=== PATIENT | male | born 1990 | race Caucasian/White ===

== ENCOUNTER 2021-01-14 18:31 | Observation (INO) ==
[2021-01-14] MEDS ORDERED: SODIUM CHLORIDE 0.9% 1000ML 2,000 ML IV ONE (18:36)
[2021-01-14] MEDS ORDERED: ONDANSETRON INJ 2 MG/ML 2 ML VIAL IV STA (18:45)
[2021-01-14] MEDS ORDERED: KETOROLAC TROMETHAMINE 15 MG/ML VIAL IV ONE (18:45)
--- NOTE | 2021-01-14 18:47 | Emergency Department Note ---
Impression & Plan Incarcerated epigastric hernia, Abdominal pain ED Provider Note NAME: LIZETTE GLYNN AGE: 30 SEX: M : 1990 ARRIVES VIA: Walk-In INFORMANT: Patient ED PROVIDER(S): Jalen Hayden DO CHIEF COMPLAINT: Abdominal pain HPI: Patient is a 22-year-old male who presents the ER for supraumbilical abdominal pain which started around 12 PM. He has been having intermittent pain for the past year. He admits to nausea but no vomiting. No dysuria, urgency or frequency. Last bowel movement was around 3 PM. Pain is an 8/10. Denies any chest pain or shortness of breath. Pain is worse with movement and palpation. No other exacerbating remitting factors. ROS: See above HPI for pertinent positives & negatives. A total of 10 systems reviewed and were otherwise negative. PAST MEDICAL HISTORY:See Below PAST SURGICAL HISTORY:See Below FAMILY HISTORY:See Below SOCIAL HISTORY:See Below HOME MEDICATIONS:See Below ALLERGIES:See Below VITALS:See Below PHYSICAL EXAMINATION: GENERAL: Sitting up in bed, alert, well appearing, well nourished, no distress, non-toxic EYE EXAM: normal conjunctiva. OROPHARYNX: no exudate, no erythema, lips, buccal mucosa, and tongue normal and mucous membranes are moist NECK: supple, no nuchal rigidity, no adenopathy, non-tender LUNGS: Clear to auscultation. Normal chest wall mechanics HEART: no murmurs, S1 normal and S2 normal ABDOMEN: abdomen soft, firm tender mass in the superior umbilical region nonreducible, normo-active bowel sounds, no rebound or guarding. BACK: Back is symmetrical on inspection and there is no deformity, no midline tenderness, no CVA tenderness. SKIN: no rashes and no bruising UPPER EXTREMITIES: upper extremities are grossly normal. LOWER EXTREMITIES: No pitting edema. NEURO EXAM: Normal sensorium, cranial nerves II-XII grossly intact, normal speech, no gross weakness of arms, no gross weakness of legs. MEDICAL DECISION MAKING: Patient is a 30-year-old male who presents ER for severe abdominal pain. On exam he has an epigastric abdominal hernia which is nonreducible and severely tender. IVs were established blood work was obtained. Labs show a leukocytosis of 12,000. No significant anemia. BMP on LFTs bilirubin and lipase was unremarkable. I-STAT was obtained and patient was taken emergently to CT. I did consult general surgery and they evaluated him on his way over to CT. CT showed a small bowel obstruction likely secondary to incarcerated epigastric hernia. Covid was positive. He was given IV fluids pain medications. He was updated bedside. He was taken emergently to the OR for reduction of the hernia. Triage Nursing notes reviewed. Limited review of prior medical records performed Vital Signs: reviewed and remarkable for HTN Differential diagnosis: Differential diagnoses includes but is not limited to gastritis, peptic ulcer disease, GERD, gallbladder disease, pancreatitis, small bowel obstruction, acute coronary syndrome, pericarditis, ischemic bowel, irritable bowel disease, irritable bowel syndrome, appendicitis, diverticulitis, malignancy, hernia, urinary tract infection, torsion, perforation, trauma, infectious. ER treatment provided: See below Diagnostics interpreted by me: ECG: none Cardiac Monitoring: An order was placed for continuous cardiac monitoring. The monitor shows a rate of 72 with sinus rhythm. Laboratory studies: As stated above and show below. Imaging studies: CT abdomen pelvis shows an incarcerated epigastric hernia causing a small bowel obstruction Consultation(s): Consulted Morgan Gonzalez who evaluate the patient at bedside and took the patient emergently to the OR Procedures: none Critical Care: I have personally spent 31 minutes of critical care time in the direct management of this patient. This includes bedside care, interpretation of diagnostic studies, and testing, discussion with consultants, patient, and family members, and other required patient management activities. This 31 minutes is in excess of all separately billable procedures. Past Med/Surg History Medical History Hx of migraines Surgical History No significant past surgical history Social History Smoking Status: Never smoker marital status: Single current occupational status: employed Feels Safe at Home: Yes Allergies Allergies Allergy/AdvReac Type Severity Reaction Status Date / Time No Known Allergies Allergy Verified 09/08/20 14:03 Home Meds Previous Rx's Medication Instructions Recorded benzonatate [Tessalon Perles] 100 mg PO TID PRN #20 cap 12/07/20 Results & Data (ED) Vital Signs Vital Signs - 24 hr 01/14/21 18:33 Temperature 36.6 C Temperature Source Skin Pulse Rate 79 Respiratory Rate 16 Respiratory Effort / Characteristics Non-Labored Spontaneous Respiratory Depth Normal Blood Pressure 152/96 H Blood Pressure Mean 114 Blood Pressure Position Sitting Pulse Oximetry 98 Oxygen Delivery Method Room Air Sepsis Recent Fever Within 48 Hours No Sepsis New/Unexplained Change in Mental Status N/A Sepsis Action Taken by Nursing No Action Required Laboratory Data Result diagrams: 01/14/21 18:47 01/14/21 18:47 Lab Results 01/14/21 01/14/21 01/14/21 Range/Units 18:47 18:47 18:52 WBC 12.01 H (4.8-10.8) K/uL RBC 5.47 (4.7-6.1) M/uL Hgb 17.2 (14.0-18.0) g/dL POC Hgb 17.3 (14.0-18.0) g/dl Hct 50.1 (42-52) % POC Hct 51 (42-52) % MCV 91.6 (80-100) fL MCH 31.4 (25-34) pg MCHC 34.3 (32-36) g/dL RDW Std Deviation 43.9 (36.4-46.3) fL RDW Coeff of Glenn 12.9 (11.5-14.5) % Plt Count 378 (130-400) K/uL MPV 9.7 (7.4-10.4) fL Immature Gran % (Auto) 0.2 % Neut % (Auto) 72.7 % Lymph % (Auto) 18.0 % [place] % (Auto) 8.4 % Eos % (Auto) 0.4 % Baso % (Auto) 0.3 % Neut # (Auto) 8.72 H (1.4-6.5) K/uL Lymph # (Auto) 2.16 (1.2-3.4) K/uL [place] # (Auto) 1.01 H (0.11-0.59) K/uL Eos # (Auto) 0.05 (0-0.5) K/uL Baso # (Auto) 0.04 (0-0.2) K/uL Immature Gran # (Auto) 0.03 H (0.00-0.02) K/uL POC Sodium 141 (135-144) mmol/L Sodium 140 (136-145) mmol/L POC Potassium 3.9 (3.3-5.0) mmol/L Potassium 3.9 (3.5-5.1) mmol/L POC Chloride 101 (101-112) mmol/L Chloride 104 (98-107) mmol/L Carbon Dioxide 28 (21-32) mmol/L POC Total CO2 28 (24-31) mmol/L Anion Gap 8.0 (3-11) POC Anion Gap 17.0 (16-25) mmol/L POC BUN 13 (7-18) mg/dl BUN 13 (7-18) mg/dl Creatinine 1.10 (0.6-1.4) mg/dl POC Creatinine 1.0 (0.6-1.3) mg/dl Est Cr Clr Drug Dosing 117.9 ml/min Est GFR ( Amer) 104.6 ml/min Est GFR (Non-Af Amer) 90.2 ml/min BUN/Creatinine Ratio 11.7 (10-20) Glucose 91 (70-99) mg/dl POC Glucose (other) 96 (70-99) mg/dl Calcium 9.8 (8.5-10.1) mg/dl POC Ioniz Calcium Julito 1.22 (1.12-1.32) mmol/l Total Bilirubin 0.9 (0.2-1) mg/dl AST 15 (15-37) U/L ALT 39 (12-78) U/L Alkaline Phosphatase 83 (45-117) U/L Total Protein 8.6 H (6.4-8.2) gm/dl Albumin 4.4 (3.4-5.0) gm/dl Globulin 4.2 H (2.5-4.0) gm/dl Albumin/Globulin Ratio 1.1 (0.9-2) Lipase 103 (73-393) U/L COVID-19 Eval Order SARS-CoV-2 (PCR) (Negative) 01/14/21 01/14/21 Range/Units Unknown Unknown WBC (4.8-10.8) K/uL RBC (4.7-6.1) M/uL Hgb (14.0-18.0) g/dL POC Hgb (14.0-18.0) g/dl Hct (42-52) % POC Hct (42-52) % MCV (80-100) fL MCH (25-34) pg MCHC (32-36) g/dL RDW Std Deviation (36.4-46.3) fL RDW Coeff of Glenn (11.5-14.5) % Plt Count (130-400) K/uL MPV (7.4-10.4) fL Immature Gran % (Auto) % Neut % (Auto) % Lymph % (Auto) % [place] % (Auto) % Eos % (Auto) % Baso % (Auto) % Neut # (Auto) (1.4-6.5) K/uL Lymph # (Auto) (1.2-3.4) K/uL [place] # (Auto) (0.11-0.59) K/uL Eos # (Auto) (0-0.5) K/uL Baso # (Auto) (0-0.2) K/uL Immature Gran # (Auto) (0.00-0.02) K/uL POC Sodium (135-144) mmol/L Sodium (136-145) mmol/L POC Potassium (3.3-5.0) mmol/L Potassium (3.5-5.1) mmol/L POC Chloride (101-112) mmol/L Chloride (98-107) mmol/L Carbon Dioxide (21-32) mmol/L POC Total CO2 (24-31) mmol/L Anion Gap (3-11) POC Anion Gap (16-25) mmol/L POC BUN (7-18) mg/dl BUN (7-18) mg/dl Creatinine (0.6-1.4) mg/dl POC Creatinine (0.6-1.3) mg/dl Est Cr Clr Drug Dosing ml/min Est GFR ( Amer) ml/min Est GFR (Non-Af Amer) ml/min BUN/Creatinine Ratio (10-20) Glucose (70-99) mg/dl POC Glucose (other) (70-99) mg/dl Calcium (8.5-10.1) mg/dl POC Ioniz Calcium Julito (1.12-1.32) mmol/l Total Bilirubin (0.2-1) mg/dl AST (15-37) U/L ALT (12-78) U/L Alkaline Phosphatase (45-117) U/L Total Protein (6.4-8.2) gm/dl Albumin (3.4-5.0) gm/dl Globulin (2.5-4.0) gm/dl Albumin/Globulin Ratio (0.9-2) Lipase (73-393) U/L COVID-19 Eval Order Covid19 at [facility] SARS-CoV-2 (PCR) POSITIVE A* (Negative) Administered Medications Discontinued Medications Bupivacaine HCl/Epinephrine Bitart (Bupivacaine/Epinephrine 0.5% Mpf 1:200,000 30 Ml Vial) Confirm Administered Dose 30 ml .ROUTE .STK-MED ONE Stop: 01/14/21 21:55 Last Admin: 01/14/21 23:23 Dose: 30 ml Documented by: [id number] Sodium Chloride (Nss 1000ml) 2,000 mls @ 999 mls/hr IV .Q2H1M ONE Stop: 01/14/21 20:36 Last Admin: 01/14/21 18:57 Dose: 999 mls/hr Documented by: [id number] Cefazolin Sodium (Ancef 2000mg) 2,000 mg in 15 mls @ 3.75 mls/min IV ONCE ONE Stop: 01/14/21 23:01 Last Admin: 01/14/21 22:59 Dose: 3.75 mls/min Documented by: [id number] Ioversol (Optiray 300 100ml) 88 ml IV ONCE ONE Stop: 01/14/21 19:17 Last Admin: 01/14/21 19:17 Dose: 88 ml Documented by: [id number] Ketorolac Tromethamine (Ketorolac Tromethamine 15 Mg/Ml Vial) 15 mg IV NOW ONE Stop: 01/14/21 18:46 Last Admin: 01/14/21 18:56 Dose: 15 mg Documented by: [id number] Ondansetron HCl (Ondansetron Inj 2 Mg/Ml 2 Ml Vial) 4 mg IV NOW STA Stop: 01/14/21 18:46 Last Admin: 01/14/21 18:56 Dose: 4 mg Documented by: [id number] Imaging Data Radiologist's Impression: Abdomen/Pelvis CT 01/14/21 18:42 CT OF THE ABDOMEN AND PELVIS WITH CONTRAST CLINICAL HISTORY: Periumbilical pain. COMPARISON STUDY: None. TECHNIQUE: Following IV administration of 88 mL of Optiray, axial images of the abdomen and pelvis were obtained from the lung bases to the proximal femurs. Images were reviewed in the axial, sagittal, and coronal planes. IV contrast was administered without complication. Automated exposure control was utilized for the study. A dose lowering technique was utilized adhering to the principles of ALARA. CT DOSE: 882.00 mGy.cm FINDINGS: Lung bases are unremarkable. No pneumatosis, free air or portal venous gas is present. The stomach is mildly distended. The liver, adrenal glands, kidneys and pancreas are unremarkable. There is borderline splenomegaly. There is no hydronephrosis. No biliary or pancreatic ductal dilatation is noted. There is no peripancreatic or pericholecystic infiltration. The appendix is normal. A small fat-containing umbilical hernia is present. In addition, there is a supraumbilical hernia which contains a loop of small bowel and a small amount of fluid. The small bowel proximal to the hernia is moderately dilated and fluid-fi lled. Small bowel distal to the hernia is decompressed. This represents a small bowel obstruction. There is associated mesenteric infiltration and small amount of ascites. Major vasculature is patent. There is no lymphadenopathy. No acute fracture or suspicious lesion is identified within the visualized skeletal structures. IMPRESSION: 1. Small bowel obstruction due to a supraumbilical hernia which contains a loop of small bowel. Small amount of associated ascites and mesenteric infiltration. 2. Fat-containing umbilical hernia. ACT 112: Negative or not required by law. Electronically signed by: Anthony Kay M.D. 01/14/2021 7:31 PM Discharge Plan Visit Data Chief Complaint: Nausea Stated Complaint: NAUSEA, TENDERNESS IN ABDOMEN AREA ED Provider: Jalen Hayden Discharge Problem: Incarcerated epigastric hernia, Abdominal pain Patient Disposition: Admitted As Inpatient Discharge Instructions Interventions: ED Discharge Assessment Last Done: 01/14/21 22:11 Forms Stand Alone Forms: [employer] Prescriptions Prescriptions: No Action benzonatate [Tessalon Perles] 100 mg capsule 100 mg PO TID PRN (Reason: cough) Qty: 20 RF: 1 Referrals Referrals: PCP,NO [Primary Care Provider] - Discharge Problem: Abdominal pain Qualifiers: Abdominal location: unspecified location Qualified Code(s): R10.9 - Unspecified abdominal pain
[2021-01-14 18:55] LABS: Basophils # (auto) 0.04 K/uL (0-0.2); Basophils % (auto) 0.3 %; Eosinophils # (auto) 0.05 K/uL (0-0.5); Eosinophils % (auto) 0.4 %; Hematocrit (blood only) 50.1 % (42-52); Hemoglobin 17.2 g/dL (14.0-18.0); Immature Granulocytes # (auto) 0.03 K/uL (0.00-0.02); Immature Granulocytes % (auto) 0.2 %; Lymphocytes # (auto) 2.16 K/uL (1.2-3.4); Mean Corpuscular Hemoglobin 31.4 pg (25-34); Mean Corpuscular Hgb Conc 34.3 g/dL (32-36); Mean Corpuscular Volume 91.6 fL (80-100); Mean Platelet Volume 9.7 fL (7.4-10.4); Monocytes # (auto) 1.01 K/uL (0.11-0.59); Monocytes % (auto) 8.4 %; Neutrophils # (auto) 8.72 K/uL (1.4-6.5); Neutrophils % (auto) 72.7 %; Platelet Count 378 K/uL (130-400); RDW Coefficient of Variation 12.9 % (11.5-14.5); RDW Standard Deviation 43.9 fL (36.4-46.3); Red Blood Count 5.47 M/uL (4.7-6.1); White Blood Count 12.01 K/uL (4.8-10.8)
[2021-01-14 19:05] LABS: iSTAT Hemoglobin 17.3 g/dl (14.0-18.0); iSTAT Ionized Calcium 1.22 mmol/l (1.12-1.32); iSTAT Potassium 3.9 mmol/L (3.3-5.0)
[2021-01-14] MEDS ORDERED: OPTIRAY 300 100mL IV ONE (19:16)
[2021-01-14 19:29] LABS: Albumin Level 4.4 gm/dl (3.4-5.0); BUN Creatinine Ratio 11.7 (10-20); Calcium 9.8 mg/dl (8.5-10.1); Creatinine Clr Calc Pharmacy 117.9 ml/min; Est GFR (African American) 104.6 ml/min; Est GFR (Non-African American) 90.2 ml/min; Potassium 3.9 mmol/L (3.5-5.1)
[2021-01-14 19:32] LABS: Albumin Globulin Ratio 1.1 (0.9-2); Bilirubin,Total 0.9 mg/dl (0.2-1); Globulin 4.2 gm/dl (2.5-4.0); Total Protein 8.6 gm/dl (6.4-8.2)
--- NOTE | 2021-01-14 19:33 | CT Scan Report ---
CT OF THE ABDOMEN AND PELVIS WITH CONTRAST CLINICAL HISTORY: Periumbilical pain. COMPARISON STUDY: None. TECHNIQUE: Following IV administration of 88 mL of Optiray, axial images of the abdomen and pelvis we re obtained from the lung bases to the proximal femurs. Images were reviewed in the axial, sagittal, and coronal planes. IV contrast was administered without complication. Automated exposure control wa s utilized for the study. A dose lowering technique was utilized adhering to the principles of ALARA . CT DOSE: 882.00 mGy.cm FINDINGS: Lung bases are unremarkable. No pneumatosis, free air or portal venous gas is present. The stomach is mildly distended. The liver, adrenal glands, kidneys and pancreas are unremarkable. There is borderline splenomegaly. There is no hydronephrosis. No biliary or pancreatic ductal dilatation is noted. There is no peripancreatic or pericholecystic infiltration. The appendix is normal. A small f at-containing umbilical hernia is present. In addition, there is a supraumbilical hernia which contai ns a loop of small bowel and a small amount of fluid. The small bowel proximal to the hernia is moder ately dilated and fluid-filled. Small bowel distal to the hernia is decompressed. This represents a s mall bowel obstruction. There is associated mesenteric infiltration and small amount of ascites. Indy r vasculature is patent. There is no lymphadenopathy. No acute fracture or suspicious lesion is ident ified within the visualized skeletal structures. IMPRESSION: 1. Small bowel obstruction due to a supraumbilical hernia which contains a loop of small bowel. Small amount of associated ascites and mesenteric infiltration. 2. Fat-containing umbilical hernia. ACT 112: Negative or not required by law. Electronically signed by: Anthony Kay M.D. 01/14/2021 7:31 PM
--- NOTE | 2021-01-14 20:02 | History & Physical Report ---
Date of Service January 14, 2021 Assessment & Plan (1) Incarcerated epigastric hernia: -CT images and results reviewed, consistent with incarcerated epigastric hernia with SBO -Admit to surgery -Pain control PRN -NPO/IVF -To OR tonight for open repair of incarcerated epigastric hernia, possible mesh, possible bowel resection -Consent obtained, risks discussed including bleeding, infection, recurrence, mesh infection, leak History of Present Illness Chief Complaint: Abdominal pain, Nausea Primary Care Provider: NO PCP This is a 30 yo male who presents to the ER with abdominal pain and nausea. He states he was lifting some heavy boxes today when he felt a pop above his umbilicus. His abdominal pain was sharp, tearing without radiation, worsened by palpation. This happened around noon today. He had nausea without emesis. No constipation or diarrhea. No melena or hematochezia. No dysuria. He has never had surgery on his abdomen. Allergies Allergy/AdvReac Type Severity Reaction Status Date / Time No Known Allergies Allergy Verified 09/08/20 14:03 Home Medications Medication Instructions Recorded Confirmed Type benzonatate [Tessalon Perles] 100 mg PO TID PRN #20 cap 12/07/20 01/14/21 Rx Past Med/Surg History Medical History Hx of migraines Surgical History No significant past surgical history Social History Smoking Status: Never smoker marital status: Single current occupational status: employed Feels Safe at Home: Yes Review of Systems Constitutional: no fever and no chills Eyes: no blind spots and no worsening vision Ear, Nose, Mouth, Throat: no ear pain and no hearing loss Respiratory: no cough and no dyspnea Cardiovascular: no chest pain and no dyspnea on exertion Gastrointestinal: + abdominal pain and + nausea; no vomiting, no change in stools, no constipation, no diarrhea/loose stools, no blood in stools and no melena Genitourinary: no dysuria Musculoskeletal: no back pain and no neck pain Integumentary: no erythema and no dry skin Neurologic: no headache(s) Psychiatric: no behavioral changes and no depression Hematologic / Lymphatic: no easy bleeding and no easy bruising Physical Exam Constitutional: WD/WN, vitals as above Eyes: PERRL, conjunctivae normal, anicteric sclerae ENMT: external ear and nose normal, oropharynx normal Neck: trachea midline, no thyromegaly Respiratory: normal respiratory effort, lungs clear to auscultation Cardiovascular: RRR, no murmur, no edema Gastrointestinal (Abdomen): Inspection/Auscultation: + abdomen abnormal to inspection and abdomen not distended Percussion/Palpation: + abdomen tender (epigastric), + guarding, abdomen soft and + hernia (+small reducible umbilical, +incarcerated epigastric hernia, no skin change) Musculoskeletal: no cyanosis or clubbing, extremities motor strength 5/5 Skin: no rashes, warm and dry Neurologic: PERRL, EOMI, accommodation nl, no face palsy, no dysarthria Psychiatric: A+Ox3, euthymic affect Results & Data Results & Data ([facility]) Vital Signs (Past 12 Hours) Vital Signs Temp Pulse Resp BP Pulse Ox 01/14/21 18:33 36.6 C 79 16 152/[address] OF THE ABDOMEN AND PELVIS WITH CONTRAST CLINICAL HISTORY: Periumbilical pain. COMPARISON STUDY: None. TECHNIQUE: Following IV administration of 88 mL of Optiray, axial images of the abdomen and pelvis were obtained from the lung bases to the proximal femurs. Images were reviewed in the axial, sagittal, and coronal planes. IV contrast was administered without complication. Automated exposure control was utilized for the study. A dose lowering technique was utilized adhering to the principles of ALARA. CT DOSE: 882.00 mGy.cm FINDINGS: Lung bases are unremarkable. No pneumatosis, free air or portal venous gas is present. The stomach is mildly distended. The liver, adrenal glands, kidneys and pancreas are unremarkable. There is borderline splenomegaly. There is no hydronephrosis. No biliary or pancreatic ductal dilatation is noted. There is no peripancreatic or pericholecystic infiltration. The appendix is normal. A small fat-containing umbilical hernia is present. In addition, there is a supraumbilical hernia which contains a loop of small bowel and a small amount of fluid. The small bowel proximal to the hernia is moderately dilated and fluid- filled. Small bowel distal to the hernia is decompressed. This represents a small bowel obstruction. There is associated mesenteric infiltration and small amount of ascites. Major vasculature is patent. There is no lymphadenopathy. No acute fracture or suspicious lesion is identified within the visualized skeletal structures. IMPRESSION: 1. Small bowel obstruction due to a supraumbilical hernia which contains a loop of small bowel. Small amount of associated ascites and mesenteric infiltration. 2. Fat-containing umbilical hernia. PG Care Time/CCT Total # of Minutes Spent Total Time Spent with Patient: Total time spent is greater than 50% in coordination of care (as documented) at patient's floor/unit and/or counseling patient: Coding Level of Care Code 04640 Initial Inpt Care Lvl 3 Diagnoses Incarcerated epigastric hernia K43.6
[2021-01-14] MEDS ORDERED: BUPIVACAINE/EPINEPHRINE 0.5% MPF 1:200,000 30 ML VIAL ONE (21:54)
[2021-01-14] MEDS ORDERED: PROPOFOL IV EMULSION 10 MG/ML 20 ML VIAL IV ONE (22:14)
[2021-01-14] MEDS ORDERED: LIDOCAINE HCL 2% 2 ML VIAL/AMP(20MG/ML) INFIL ONE (22:15)
[2021-01-14] MEDS ORDERED: ONDANSETRON INJ 2 MG/ML 2 ML VIAL ONE (22:15)
[2021-01-14] MEDS ORDERED: fentaNYL citrate 100 MCG/2 ML VIAL ONE (22:15)
[2021-01-14] MEDS ORDERED: ROCURONIUM BROMIDE 10 MG/ML 5 ML VIAL IV ONE (22:15)
[2021-01-14] MEDS ORDERED: MIDAZOLAM HCL 1 MG/ML 2ML VIAL ONE (22:16)
--- NOTE | 2021-01-14 22:24 | Anesthesiology Consultation ---
Date of Service January 14, 2021 Assessment & Plan Chart Review Chart Review: Acceptable Risk for Surgery Consults Requested none History Surgery Operation Date: 01/14/21 21:00 Proposed Procedures p Inguinal Hernia Repair - Morgan Gonzalez DO Height/Weight Height: 5 ft 8 in Weight: 107.7 kg Allergies Allergy/AdvReac Type Severity Reaction Status Date / Time No Known Allergies Allergy Verified 09/08/20 14:03 Medications Home Medications Medication Instructions Recorded Confirmed Last Taken benzonatate [Tessalon Perles] 100 mg PO TID PRN #20 cap 12/07/20 01/14/21 Unknown Past Medical History Medical History Hx of migraines Past Surgical History Surgical History No significant past surgical history Social History Smoking Status: Never smoker tobacco type: cigarettes Physical Exam Vital Signs Last Vital Signs Temp 36.6 C 01/14/21 18:33 Pulse 79 01/14/21 18:33 Resp 16 01/14/21 18:33 BP 152/96 H 01/14/21 18:33 Pulse Ox 98 01/14/21 18:33 Testing Laboratory Results 01/14/21 18:47 01/14/21 18:47 01/14/21 18:52 POC Glucose (other) 96
[2021-01-14] MEDS ORDERED: METOCLOPRAMIDE HCL INJ 5 MG/ML 2 ML VIAL IV PRN (22:27)
[2021-01-14] MEDS ORDERED: PROMETHAZINE HCL 12.5 MG in SODIUM CHLORIDE 0.9% 50 ML IV PRN (22:27)
[2021-01-14] MEDS ORDERED: ONDANSETRON INJ 2 MG/ML 2 ML VIAL IV PRN (22:27)
[2021-01-14] MEDS ORDERED: fentaNYL citrate 100 MCG/2 ML VIAL IV PRN (22:27)
[2021-01-14] MEDS ORDERED: HYDROmorphone INJ 2 MG/ML SYR/VIAL IV PRN (22:27)
[2021-01-14] MEDS ORDERED: ePHEDrine sulfate 50 MG/ML AMP IV PRN (22:27)
[2021-01-14] MEDS ORDERED: ATROPINE SULFATE 0.1 MG/ML 10ML SYR IV PRN (22:27)
[2021-01-14] MEDS ORDERED: ceFAZolin 2000MG 2,000 MG/15 ML SYR IV ONE (22:58)
[2021-01-14] MEDS ORDERED: GLYCOPYRROLATE 0.2 MG/ML VIAL ONE (23:34)
[2021-01-14] MEDS ORDERED: NEOSTIGMINE METHYLSULFATE 5 MG/5 ML SYR ONE (23:34)
--- NOTE | 2021-01-14 23:52 | Post Operative Brief Note ---
PG Immediate Post Op with CF Date of Surgery January 14, 2021 Pre & Post Diagnosis Operation Date: 01/14/21 21:00 Pre-Op Diagnosis: incarcerated epigastric hernia Post-Op Diagnosis: incarcerated epigastric hernia I identified the patient and participated in the time-out.: Yes Procedure Operation Date: 01/14/21 21:00 Actual Procedures p open Repair of incarcerated epigastric hernia(Not Applicable) - Morgan Gonzalez DO Surgeon Morgan Gonzalez DO Clinical Specialist Vascular Mark Hung PA-C Estimated Blood Loss 5 Findings See Below 2.2cm incarcerated epigastric hernia with omentum and small bowel Fluids 1000mL crystalloid Specimens Specimen Description: Permanent A. Hernia sac Drains Waldron Catheter Anesthesia Type General Complications none Disposition Disposition: Recovery Room
--- NOTE | 2021-01-14 23:58 | Operative Report ---
PG Post Operative Report Pre & Post Diagnosis Operation Date: 01/14/21 21:00 Pre-Op Diagnosis: incarcerated epigastric hernia Post-Op Diagnosis: incarcerated epigastric hernia I identified the patient and participated in the time-out.: Yes Procedure Operation Date: 01/14/21 21:00 Actual Procedures p open Repair of incarcerated epigastric hernia(Not Applicable) - Morgan Gonzalez DO Surgeon Morgan Gonzalez DO Employment Training Specialist Mark Hung PA-C Estimated Blood Loss 5 Findings See Below 2.2cm incarcerated epigastric hernia with omentum and small bowel Fluids 1000mL crystalloid Specimens Hernia sac to pathology Drains None Anesthesia Type General Complications none Disposition Disposition: Recovery Room Indications 30 yo male with incarcerated epigastric hernia causing SBO Description of Procedure The patient was brought to the OR and placed in the supine position with both arms abducted. At this time he underwent general endotracheal anesthesia without any problems. He was given appropriate pre-operative antibiotics. His abdomen was prepped and draped in the usual sterile fashion. Timeout was called. The procedure was verified as Open epigastric hernia repair, possible mesh. Surgical, anesthesia and nursing teams agreed and the procedure was begun. After injection of 0.25% Marcaine with epinephrine, a transverse incision was made directly over the palpable hernia using a #15 blade scalpel. This was carried down to the hernia sac using electrocautery. The hernia and its contents were then dissected free sharply from the surrounding tissues all the way down to the level of the fascia.The hernia sac was then dissected free and removed. The small bowel and omentum were viable and placed back into the abdomen. At this point the defect was apparent and measured 2.2cm. The fascia was then cleared of any tissue so that healthy tissue could be used for repair. The defect was then closed using 1-PDS suture in a running fashion. The wound was then irrigated until clear. Hemostasis was achieved using electrocautery. Hemostasis was complete. The subcutaneous tissue was reapproximated using 3-0 Vicryl. 4-0 Monocryl was used to close the skin in a running subcuticular fashion. Sterile dressing was applied. All needle and sponge counts were correct x 2. At this point the patient was awakened from anesthesia, extubated and transported to PACU in stable condition. The physician's financial services assistant was present and scrubbed for the entire case. He was essential in positioning, prepping and draping the patient, retraction and exposure, closure of the incision and placement of the dressing. I attest to the content of the Intraoperative Record and any orders documented therein. Any exceptions are noted below.
--- NOTE | 2021-01-15 00:54 | Anesthesiology Progress Note ---
Date of Service January 15, 2021 Anesthesia Post Procedure Vital Signs Vital Signs: Temp Pulse Pulse Resp BP BP Pulse Ox 01/15/21 00:43 68 20 128/81 92 01/15/21 00:32 74 18 118/59 L 93 01/15/21 00:22 70 16 139/81 91 01/15/21 00:10 36.5 C 81 16 151/76 H 92 01/14/21 18:33 36.6 C 79 16 152/96 H 98 Pain Intensity Abdomen: Pain Intensity: 6 Transfer of Care Handoff Completed per policy Notes Mental Status: alert / awake / arousable and participated in evaluation Patient Amnestic to Procedure: Yes Nausea / Vomiting: adequately controlled Pain: adequately controlled Airway Patency, RR, SpO2: stable & adequate BP & HR: stable & adequate Hydration State: stable & adequate Anesthetic Complications: no major complications apparent Notes: Pt had ventral herniorrhaphy under GA. During emergence, pt vomited massive amount of stomach contents. ETT was still in place with cuff inflated. Pharynx was cleared, suctioned, pt continued to emerge. After fully awake, pharynx cleared again and pt extubated. Pt awake and maintaining SaO2 mid-90s on room air in PACU. Planned for admission. Will f/u.
--- NOTE | 2021-01-15 00:57 | Anesthesiology Progress Note ---
Date of Service January 15, 2021 Anesthesia Post Procedure Vital Signs Vital Signs: Temp Pulse Pulse Resp BP BP Pulse Ox 01/15/21 00:43 68 20 128/81 92 01/15/21 00:32 74 18 118/59 L 93 01/15/21 00:22 70 16 139/81 91 01/15/21 00:10 36.5 C 81 16 151/76 H 92 01/14/21 18:33 36.6 C 79 16 152/96 H 98 Pain Intensity Abdomen: Pain Intensity: 6
[2021-01-15] MEDS ORDERED: ONDANSETRON INJ 2 MG/ML 2 ML VIAL IV PRN (02:07)
[2021-01-15] MEDS ORDERED: MoRPHine SULFATE 4 MG/ML 1 ML CARP\\VIAL IV PRN (02:07)
[2021-01-15] MEDS: LACTATED RINGER'S 1,000 ML IV SCH ×2 (02:24→14:02)
[2021-01-15] MEDS: ACETAMINOPHEN 1,000 MG/100 ML VIAL IV SCH ×3 (02:25→18:23)
--- NOTE | 2021-01-15 06:53 | Anesthesiology Progress Note ---
Date of Service January 15, 2021 Pt seen resting in bed. Reports restful, uneventful night. SaO2 95% on room air. No signs or symptoms of aspiration after vomiting during emergence. Anesthesia Post Procedure Vital Signs Vital Signs: Temp Pulse Pulse Pulse Resp BP BP 01/15/21 04:28 36.7 C 01/15/21 04:25 92 H 01/15/21 03:15 37.4 C 97 H 18 01/15/21 02:15 36.6 C 72 18 01/15/21 01:45 37.3 C 68 18 01/15/21 01:15 37.1 C 70 18 01/15/21 00:43 68 20 128/81 01/15/21 00:32 74 18 118/59 L 01/15/21 00:22 70 16 139/81 01/15/21 00:10 36.5 C 81 16 151/76 H 01/14/21 18:33 36.6 C 79 16 152/96 H BP Pulse Ox 01/15/21 04:28 01/15/21 04:25 116/74 95 01/15/21 03:15 120/72 92 01/15/21 02:15 111/70 93 01/15/21 01:45 109/67 93 01/15/21 01:15 115/70 94 01/15/21 00:43 92 01/15/21 00:32 93 01/15/21 00:22 91 01/15/21 00:10 92 01/14/21 18:33 98 Pain Intensity Abdomen: Pain Intensity: 6 Transfer of Care Handoff Completed per policy Notes Mental Status: alert / awake / arousable and participated in evaluation Patient Amnestic to Procedure: Yes Nausea / Vomiting: adequately controlled Pain: adequately controlled Airway Patency, RR, SpO2: stable & adequate BP & HR: stable & adequate Hydration State: stable & adequate Anesthetic Complications: no major complications apparent
--- NOTE | 2021-01-15 07:23 | XRay Report ---
SINGLE VIEW CHEST CLINICAL HISTORY: Postoperative nausea and vomiting. Covid. FINDINGS: An AP, portable, upright chest radiograph is compared to study dated 12/07/2020. The examinat ion is degraded by portable technique and apical lordotic positioning. The cardiomediastinal silhouet te is unremarkable. There is elevation of the right hemidiaphragm. The lungs and pleural spaces are c lear. No pneumothorax is seen. The bony thorax is grossly intact. IMPRESSION: No active disease in the chest. ACT 112: Negative or not required by law. Electronically signed by: Seymour Dominguez M.D. 01/15/2021 7:22 AM
--- NOTE | 2021-01-15 08:23 | Surgery Progress Note ---
Date of Service January 15, 2021 Assessment & Plan (1) Incarcerated epigastric hernia: POD 1 start on clears, recheck later today Admission and Anticipated Discharge Date Admission Date: January 14, 2021 Subjective minimal pain, no nausea Physical Exam Gastrointestinal (Abdomen): Inspection/Auscultation: + abdominal surgical incision (dressing dry); abdomen not distended Percussion/Palpation: abdomen soft Results & Data ([facility]) Vital Signs (Past 12 Hours) Vital Signs Temp Pulse Pulse Pulse Resp BP BP 01/15/21 04:28 36.7 C 01/15/21 04:25 92 H 01/15/21 03:15 37.4 C 97 H 18 01/15/21 02:15 36.6 C 72 18 01/15/21 01:45 37.3 C 68 18 01/15/21 01:15 37.1 C 70 18 01/15/21 00:43 68 20 128/81 01/15/21 00:32 74 18 118/59 L 01/15/21 00:22 70 16 139/81 01/15/21 00:10 36.5 C 81 16 151/76 H BP Pulse Ox 01/15/21 04:28 01/15/21 04:25 116/74 95 01/15/21 03:15 120/72 92 01/15/21 02:15 111/70 93 01/15/21 01:45 109/67 93 01/15/21 01:15 115/70 94 01/15/21 00:43 92 01/15/21 00:32 93 01/15/21 00:22 91 01/15/21 00:10 92 PG Care Time/CCT Total # of Minutes Spent Total Time Spent with Patient: Total time spent is greater than 50% in coordination of care (as documented) at patient's floor/unit and/or counseling patient: Coding Level of Care Code None Diagnoses Incarcerated epigastric hernia K43.6
[2021-01-16] MEDS: ACETAMINOPHEN 1,000 MG/100 ML VIAL IV SCH ×2 (01:54→11:13)
[2021-01-16] MEDS: LACTATED RINGER'S 1,000 ML IV SCH (03:28)
[2021-01-16] MEDS ORDERED: oxyCODONE/ACETAMINOPHEN 5mg/325mg TAB PO PRN ×2 (07:49)
--- NOTE | 2021-01-16 07:51 | Surgery Progress Note ---
Date of Service January 16, 2021 Assessment & Plan (1) Incarcerated epigastric hernia: POD 2 epigastric hernia repair advance diet, recheck later today for possible d/c Admission and Anticipated Discharge Date Admission Date: January 14, 2021 Subjective on full liquids, no nausea, minimal pain Physical Exam Gastrointestinal (Abdomen): Inspection/Auscultation: + abdominal surgical incision (clean, dry); abdomen not distended Percussion/Palpation: abdomen soft Results & Data [facility]) Vital Signs (Past 12 Hours) Vital Signs Temp Pulse Resp BP Pulse Ox 01/16/21 07:16 37.1 C 68 18 125/80 95 01/15/21 22:10 36.8 C 74 15 132/74 95 PG Care Time/CCT Total # of Minutes Spent Total Time Spent with Patient: Total time spent is greater than 50% in coordination of care (as documented) at patient's floor/unit and/or counseling patient: Coding Level of Care Code None Diagnoses Incarcerated epigastric hernia K43.6
--- NOTE | 2021-01-16 09:55 | Discharge Summary ---
Date of Service January 16, 2021 Admission HPI Per Admitting Provider This is a 30 yo male who presents to the ER with abdominal pain and nausea. He states he was lifting some heavy boxes today when he felt a pop above his umbilicus. His abdominal pain was sharp, tearing without radiation, worsened by palpation. This happened around noon today. He had nausea without emesis. No constipation or diarrhea. No melena or hematochezia. No dysuria. He has never had surgery on his abdomen. Principal Diagnosis Incarcerated epigastric hernia Discharge Exam Constitutional WD/WN, vitals as above Gastrointestinal (Abdomen) Inspection/Auscultation: + abdominal surgical incision (clean, dry, steri-strips intact); abdomen not distended Percussion/Palpation: abdomen soft Discharge Data Allergies Allergy/AdvReac Type Severity Reaction Status Date / Time No Known Allergies Allergy Verified 09/08/20 14:03 Procedures Performed Operation Date: 01/14/21 21:00 Actual Procedures p open Repair of incarcerated epigastric hernia(Not Applicable) - Morgan Gonzalez DO Ordered Studies 01/14/21 18:42 CT abd pelvis IV con only Stat Hospital Course (1) Incarcerated epigastric hernia: 30 y/o male presented to the ER with abdominal pain and felt a pop when lifting heavy boxes. CT showed incarcerated epigastric hernia with SBO. He was taken to the operating room urgently overnight for open repair of hernia and transferred to the surgical floor for overnight observation. His diet was slowly advanced. By the second day he was tolerating regular diet and was stable for discharge home. Total Time Total Time Spent Total Time Spent (In Minutes): 15 Discharge Plan Discharge Items Patient Disposition: Home - Self-Care Reason For Visit: INGUINAL HERNIA REPAIR Discharge Diagnosis: repair of epigastric hernia Activity: As commented below Lifting: No more than 10 pounds Bathing Comment: ok to shower, remove bandage to shower Driving/Machine Use: Resume 3 days after discharge Non-emergency contact: Surgeon Call non-emergency contact if: you have any medication questions, your pain is not controlled, your temperature is above 101.5 and your wound has increased redness Follow-up/Referrals: Morgan Gonzalez DO [Physician] - 01/24/21 9:00 am () PCP,NO [Primary Care Provider] - Diet: Regular Addtl Attending Provider Instructions: You can take Tylenol as directed or ibuprofen 600 mg every 6 hours as needed for pain Pending Studies at Discharge: No Stand-Alone Forms: My [facility], Smoking Cessation Medications and DC Order Prescriptions: New oxycodone 5 mg tablet 5 - 10 mg PO Q4H Qty: 15 RF: 0 Continued benzonatate [Tessalon Perles] 100 mg capsule 100 mg PO TID PRN (Reason: cough) Qty: 20 RF: 1 Discharge Orders: Discharge Order (Routine); Ordered 01/16/21 Ordered By: Gustavo Parker Admission Data Admit Date/Time: 01/14/21 23:52 Attending Provider: Morgan Gonzalez Admit Provider: Morgan Gonzalez Primary Care Provider: PCP,NO Coding Level of Care Code D/C Day Management <30 mins Diagnoses Incarcerated epigastric hernia K43.6
[2021-01-16] MEDS ORDERED: COUGH DROP (SUGAR FREE) LOZ 24 LOZ/1 BOX BUCCAL PRN (12:18)
== END 2021-01-16 17:09 | disposition home or self-care (01) ==
LOC: 3W 18:31 → ED 18:31 → 3W 01-15 23:03